=== PATIENT | female | born 1940 ===

== ENCOUNTER 2022-06-05 19:44 | Emergency (ER) | payer OTHER ==
[~2022-06-05] VITALS: Ht 149.9 cm; Wt 54.5 kg
[2022-06-05 20:11] LABS: Basophils # (auto) 0.1 10 ^3/uL (0-0.2); Basophils % (auto) 0.8 % (0.0-2.0); Eosinophils # (auto) 0.1 10 ^3/uL (0-0.8); Eosinophils % (auto) 1.4 % (0.0-7.0); Hemoglobin 13.4 g/dL (12.2-16.2); Lymphocytes # (auto) 2.9 10 ^3/uL (0.4-5.4); Lymphocytes % (auto) 41.8 % (10.0-50.0); Mean Corpuscular Hemoglobin 31.4 pg (28.0-32.0); Mean Corpuscular Hgb Conc. 34.2 g/dL (32.0-36.0); Mean Corpuscular Volume 91.8 fL (80.0-100.0); Monocytes # (auto) 0.6 10 ^3/uL (0-1.3); Neutrophils # (auto) 3.4 10 ^3/uL (1.6-8.6); Nucleated Red Blood Cells % 0.2 %; Red Blood Cells 4.25 10^6/uL (4.0-5.20); Red Cell Distribution Width 13.8 % (11.8-14.3); White Blood Cell 7.1 10^3/uL (4.4-10.8)
[2022-06-05 20:34] LABS: Albumin 3.6 g/dL (3.4-5.0); Calcium 9.4 mg/dL (8.5-10.1)
[2022-06-05 20:36] LABS: BUN/Creatinine Ratio 18.9 (10.0-20.0); Bilirubin, Total 0.3 mg/dL (0.2-1.0); Total Protein 7.2 g/dL (6.4-8.2)
[2022-06-05 21:31] LABS: Urine Bacteria NONE SEEN /hpf (None Seen); Urine Blood 2+ /uL (Negative); Urine WBC 519 /hpf (0 - 5); Urine WBC Clumps PRESENT /hpf (None Seen)
[2022-06-06] MEDS ORDERED: SODIUM CHLORIDE 0.9% 1,000 ML IV ONE ×2 (00:15→02:00)
[2022-06-06] MEDS ORDERED: cefTRIAXone 1GM/50ML D5W 50 ML IV ONE (00:15)
[2022-06-06] MEDS ORDERED: SODIUM CHLORIDE 0.9% 500 ML IV ONE (01:00)
[2022-06-06] MEDS ORDERED: hydrALAZINE HCL 20 MG/ML VL IV PRN (01:00)
[2022-06-06] MEDS ORDERED: MECLIZINE HCL 25 MG TAB PO ONE (02:00)
[2022-06-06] MEDS ORDERED: hydrALAZINE HCL 20 MG/ML VL IV ONE (02:30)
[2022-06-06] MEDS ORDERED: ONDANSETRON HCL 4 MG/2 ML VIAL IV ONE (02:30)
[2022-06-06] MEDS ORDERED: IOHEXOL 300 MG/ML 100ML BOTTLE IJ ONE (02:32)
[2022-06-06] MEDS ORDERED: ASPirin-EC 325mg tab PO ONE (02:45)
[2022-06-06 05:20] VITALS: BP 139/70
[2022-06-06] MEDS ORDERED: LEVO500T31 PO (06:12)
[2022-06-06] MEDS ORDERED: MECL1TAB42 PO (06:12)
== END 2022-06-06 07:18 | disposition home or self-care (01) ==
LOC: ER 19:44
DX: R07.89 Other chest pain (principal); N12 Tubulo-interstitial nephritis, not specified as acute or chronic; I10 Essential (primary) hypertension; Z88.0 Allergy status to penicillin
CPT/HCPCS: 36415; 70450; 70460; 70491; 71045; 80053; 81001; 84484; 85025; 87086; 93005; 96361; 96365; 99285; J0696; J7030; J8597; Q9967; 87088; 87186

== ENCOUNTER 2024-01-20 17:01 | Emergency (ER) | payer OTHER ==
[~2024-01-20] VITALS: Ht 152.4 cm; Wt 56.8 kg
[~2024-01-20 17:01] MED LIST: LEVO500T31 PO; MECL1TAB42 PO
[2024-01-20] MEDS: cloNIDine HCL 0.1 MG TAB PO ONE (18:17)
[2024-01-20] MEDS: ONDANSETRON ODT 4 MG TAB PO ONE (18:17)
[2024-01-20 19:25] LABS: Basophils # (auto) 0 10 ^3/uL (0-0.2); Basophils % (auto) 0.4 % (0.0-2.0); Eosinophils # (auto) 0.1 10 ^3/uL (0-0.8); Eosinophils % (auto) 0.8 % (0.0-7.0); Hematocrit 43.5 % (36.0-46.0); Hemoglobin 14.6 g/dL (12.2-16.2); Lymphocytes # (auto) 1.5 10 ^3/uL (0.4-5.4); Lymphocytes % (auto) 19.7 % (10.0-50.0); Mean Corpuscular Hemoglobin 32.6 pg (28.0-32.0); Mean Corpuscular Hgb Conc. 33.5 g/dL (32.0-36.0); Mean Corpuscular Volume 97.2 fL (80.0-100.0); Monocytes # (auto) 0.6 10 ^3/uL (0-1.3); Monocytes % (auto) 8.5 % (0.0-12.0); Neutrophils # (auto) 5.2 10 ^3/uL (1.6-8.6); Neutrophils % (auto) 70.6 % (37.0-80.0); Platelet Count (auto) 246 10^3/uL (140-450); Red Blood Cells 4.48 10^6/uL (4.0-5.20); Red Cell Distribution Width 13.4 % (11.8-14.3); White Blood Cell 7.4 10^3/uL (4.4-10.8)
[2024-01-20 19:43] LABS: Alanine Aminotransferase 25 U/L (7-40); Albumin 4.7 g/dL (3.2-4.8); Anion Gap 10 (5-15); Aspartate Aminotransferase 22 U/L (13-40); BUN/Creatinine Ratio 19.5 (10.0-20.0); Blood Urea Nitrogen 17 mg/dL (9-23); Carbon Dioxide 27 mmol/L (20-31); Chloride 105 mmol/L (98-107); Potassium 4.4 mmol/L (3.5-5.1); Sodium 142 mmol/L (136-145)
[2024-01-20 19:44] LABS: Bilirubin, Total 0.4 mg/dL (0.2-1.0); Total Protein 7.6 g/dL (5.7-8.2)
[2024-01-20 19:51] LABS: Alkaline Phosphatase 118 U/L (46-116); Calcium 11.1 mg/dL (8.7-10.4); Glucose 111 mg/dL (74-106)
[2024-01-20 19:53] LABS: Urine Bacteria None Seen /hpf (None Seen)
--- NOTE | 2024-01-20 20:03 | ED.PDOC ---
Epistaxis- HPI HPI Comments Patient is a very pleasant 83-year-old female who arrives the ED today via EMS for evaluation of an epistaxis event that occurred approximately 1 hour prior to arrival. Patient states she was in sikh when all of a sudden her right Argueta began to bleed. Patient states it was a fair amount of bleeding. Patient was able to pinch the nose and was brought to the ED for evaluation. At time of evaluation, bleeding was controlled, but blood pressure was 199/100. Patient states she has a history hypertension and takes medications for, but seems to be unsure of the medication she takes. Patient denies any blood thinner use. Patient denies any history of epistaxis events. Patient lives alone. Chief Complaint: Nose Bleed Time Seen by MD: 17:34 Primary Care Provider: UNKNOWN NAME Reviewed Notes: Nurses Notes Allergies: Uncoded Allergies: PENICILLIN (Allergy, Unknown, 06/05/22) Home Meds Active Scripts Meclizine HCl (Meclizine 25) 25 Mg Tab, 25 MG PO TID PRN for 10 Days, #30 TAB Prov:LILLIE CARREON MD 06/06/22 Levofloxacin (Levaquin) 500 Mg Tab, 250 MG PO DAILY for 9 Days, #9 TAB Prov:LILLIE CARREON MD 06/06/22 Information Source: Patient Mode of Arrival: EMS Severity: # Tbsp., Bleeding Controlled Timing: Minutes Duration: Minutes Prehospital treatment: 12 Lead EKG Location: Right naris Mechanism: Spontaneous onset Circumstances: Unknown Use of: None History of: HTN Last Tetanus: UTD Nose: Normal Nose: Intranasal/Septum: Blood Bleeding Status: No active bleeding Bleeding Amount: Moderate Source: Right Past Medical History PAST MEDICAL HISTORY: HTN Surgical History: Denies all surgeries RETAIL OPERATIONS SPECIALIST History: No Pertinent RETAIL OPERATIONS SPECIALIST History Family History Family History: Reviewed,noncontributory to illness, No family hx of Cancer, No family hx of DM, No family hx of Heart kurt, No family hx of HTN, No family hx ofKidney kurt, No family hx of Liver kurt, No family hx of Lung kurt, No family hx of Stroke Social History Smoker: Non-Smoker Alcohol: Denies ETOH Use Drugs: Denies Drug Use Constitutional: denies: chills, diaphoresis, fatigue, fever, malaise, sweats, weakness, others EENTM: reports: nose bleeding; denies: blurred vision, double vision, ear bleeding, ear discharge, ear drainage, ear pain, ear ringing, eye pain, eye redness, hearing loss, mouth pain, mouth swelling, nasal discharge, nose congestion, nose pain, photophobia, tearing, throat pain, throat swelling, voice changes, others Respiratory: denies: cough, hemoptysis, orthopnea, SOB at rest, shortness of breath, SOB with excertion, stridor, wheezing, others Cardiovascular: denies: chest pain, dizzy spells, diaphoresis, Dyspnea on exertion, edema, irregular heart beat, left arm pain, lightheadedness, palpitations, PND, syncope, others Gastrointestinal: denies: abdomen distended, abdominal pain, blood streaked bowels, constipated, diarrhea, dysphagia, difficulty swallowing, hematemesis, melena, nausea, poor appetite, poor fluid intake, rectal bleeding, rectal pain, vomiting, others Genitourinary: denies: abnormal vagina bleeding, burning, dyspareunia, dysuria, flank pain, frequency, hematuria, incontinence, pain, , vagina discharge, urgency, others Neurological: denies: dizziness, fainting, headache, left sided numbness, left sided weakness, numbness, paresthesia, pre-existing deficit, right sided numbness, right sided weakness, seizure, speech problems, tingling, tremors, weakness, others Musculoskeletal: denies: back pain, gout, joint pain, joint swelling, muscle pain, muscle stiffness, neck pain, others Integumetry: denies: bruises, change in color, change in hair/nails, dryness, laceration, lesions, lumps, rash, wounds, others Allergic/Immunocompromised: denies: Difficulty Healing, Frequent Infections, Hives, Itching, others Hematologic/Lymphatic: denies: anemia, blood clots, easy bleeding, easy bruising, swollen glands, others Endocrine: denies: excessive hunger, excessive sweating, excessive thirst, excessive urination, flushing, intolerance to cold, intolerance to heat, unexplained weight gain, unexplained weight loss, others Psychiatric: denies: anxiety, bipolar disorder, depression, hopeless, panic disorder, schizophrenia, sleepless, suicidal, others Physical Exam General Appearance: Mild Distress (Moderate distress due to concerns related to her epistaxis event.), Normal HEENT: Pharynx Normal, TMs Normal, Other (Bleeding from the right near was controlled while in the ED. I was prepared to utilize a rhino rocket if necessary. We will continue to monitor while the patient remains in the ED.) Neck: Full Range of Motion, Non-Tender, Normal, Normal Inspection Respiratory: Chest Non-Tender, Lungs Clear, No Accessory Muscle Use, No Respiratory Distress, Normal Breath Sounds Cardiovascular: No Edema, No JVD, No Murmur, No Gallop, Normal Peripheral Pulses, Tachycardia Breast Exam: Deferred Gastrointestinal: No Organomegaly, Non Tender, No Pulsatile Mass, Normal Bowel Sounds, Soft Genitalia: Deferred Pelvic: Deferred Rectal: Deferred Extremities: No calf tenderness, Normal capillary refill, Normal inspection, Normal range of motion, Non-tender, No pedal edema Neurologic: Alert, 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 Was a procedure done?: No Differential Diagnosis (NSB) Differential Diagnosis: Anterior Nasal Bleed, Posterior Nasal Bleed, Hypertension, Other (Acute coronary syndrome) X-Ray, Labs, Meds, VS Vital Signs Date Time Temp Pulse Resp B/P (MAP) Pulse Ox O2 Delivery O2 Flow Rate FiO2 01/20/24 21:08 89 15 98 Room Air* 0 21 01/20/24 21:08 97.9 89 15 146/86 (106) 98 97.9 01/20/24 20:24 98 17 149/90 (109) 96 01/20/24 18:53 100 01/20/24 18:18 100 18 149/102 (118) 95 01/20/24 18:18 100 18 95 Room Air 01/20/24 18:17 149/102 01/20/24 17:02 98.8 90 16 199/100 (133) 100 Lab Test 01/20/24 20:16 01/20/24 19:52 01/20/24 18:38 Range/Units Troponin I High Sensitivity 9 7 </=34 ng/L Urine Color Straw Yellow Urine Clarity Clear Clear Urine pH 5.5 5.0-9.0 Urine Specific [place] 1.006 1.001-1.035 Urine Protein Negative Negative Urine Ketones Negative Negative Urine Blood Negative Negative /uL Urine Nitrite Negative Negative Urine Bilirubin Negative Negative Urine Urobilinogen Normal Negative mg/dL Urine Leukocyte Esterase Trace Negative /uL Urine RBC <1 0 - 4 /hpf Urine WBC 4 0 - 5 /hpf Urine WBC Clumps Present None Seen /hpf Urine Squamous Epithelial Cells None seen <5 /hpf Urine Bacteria None seen None Seen /hpf Urine Glucose Normal Normal mg/dL White Blood Count 7.4 4.4-10.8 10^3/uL Red Blood Count 4.48 4.0-5.20 10^6/uL Hemoglobin 14.6 12.2-16.2 g/dL Hematocrit 43.5 36.0-46.0 % Mean Corpuscular Volume 97.2 80.0-100.0 fL Mean Corpuscular Hemoglobin 32.6 H 28.0-32.0 pg Mean Corpuscular Hemoglobin Concent 33.5 32.0-36.0 g/dL Red Cell Distribution Width 13.4 11.8-14.3 % Platelet Count 246 140-450 10^3/uL Mean Platelet Volume 8.9 6.9-10.8 fL Neutrophils (%) (Auto) 70.6 37.0-80.0 % Lymphocytes (%) (Auto) 19.7 10.0-50.0 % Monocytes (%) (Auto) 8.5 0.0-12.0 % Eosinophils (%) (Auto) 0.8 0.0-7.0 % Basophils (%) (Auto) 0.4 0.0-2.0 % Neutrophils # (Auto) 5.2 1.6-8.6 10 ^3/uL Lymphocytes # (Auto) 1.5 0.4-5.4 10 ^3/uL Monocytes # (Auto) 0.6 0-1.3 10 ^3/uL Eosinophils # (Auto) 0.1 0-0.8 10 ^3/uL Basophils # (Auto) 0 0-0.2 10 ^3/uL Nucleated Red Blood Cells 0.0 % Sodium Level 142 136-145 mmol/L Potassium Level 4.4 3.5-5.1 mmol/L Chloride Level 105 98-107 mmol/L Carbon Dioxide Level 27 20-31 mmol/L Anion Gap 10 5-15 Blood Urea Nitrogen 17 9-23 mg/dL Creatinine 0.87 0.550-1.02 mg/dL Glomerular Filtration Rate Calc 67 >90 mL/min BUN/Creatinine Ratio 19.5 10.0-20.0 Serum Glucose 111 H 74-106 mg/dL Lactic Acid Level 1.2 0.4-2.0 mmol/L Calcium Level 11.1 H 8.7-10.4 mg/dL Total Bilirubin 0.4 0.2-1.0 mg/dL Aspartate Amino Transferase (AST) 22 13-40 U/L Alanine Aminotransferase (ALT) 25 7-40 U/L Alkaline Phosphatase 118 H 46-116 U/L B-Type Natriuretic Peptide 48.91 0-100 pg/mL Total Protein 7.6 5.7-8.2 g/dL Albumin 4.7 3.2-4.8 g/dL Current Medications Medications (Trade) Dose Ordered Sig/Dee Route Start Time Stop Time Status Last Admin Acetaminophen (Tylenol Tablet) 650 mg ONCE ONCE PO 01/20/24 20:30 01/20/24 20:31 DC 01/20/24 20:21 X-Ray, Labs, Meds, VS Comment All studies performed the ED today were evaluated by me personally. Laboratories were unremarkable for any systemic concern. Urine was pending at time of this note. EKG revealed a sinus tachycardia with a rate of 100. Ventricular premature complexes were appreciated as well as baseline wandering in leads two three AVF and V5. OR interval of 123 and a QT interval of 328. This patient seems to be unaware of the medications that she takes and her blood pressure qualified as a hypertensive urgency. Patient will be admitted for blood pressure concerns as well as acute coronary syndrome and continued evaluation of epistaxis events. As this patient was a [facility] patient, Dr. Frantz partida was called and consulted about the need for admission. Dr. Chakraborty refused the admission for epistaxis even though I explained to her that the patient would be admitted for a hypertensive urgency at the least and a possible acute coronary syndrome. Patient will remain in the ED overnight and receive a cardiac evaluation in our facility in the morning. Time of 1ST Reevaluation: 20:12 Reevaluation 1ST: Improved Consultation: PCP, Cardiology, ENT Patient Education/Counseling: Diagnosis, Treatment Family Education/Counseling: Diagnosis, Treatment Departure 1 Departure Time of Disposition: 20:13 Impression: Primary Impression: Hypertensive urgency Additional Impressions: Acute coronary syndrome Epistaxis Disposition: 30 STILL A PATIENT Condition: Stable Discharged With: Self Critical Care Note Critical Care Time?: No Stability Stability form required: No Heart Score Heart Score: Heart Score Response (Comments) Value History Slightly Suspicious 0 EKG Repolarization Disturb 1 Age >65 2 Risk Factors 1 or 2 risk factors 1 Troponin Normal limit 0 Total 4 RACHEAL FOSS PAC Jan 20, 2024 20:03
[2024-01-20 20:11] LABS: Urine Blood Negative /uL (Negative); Urine Clarity Clear (Clear); Urine Protein, UAD Negative (Negative); Urine Specific Gravity 1.006 (1.001-1.035); Urine Urobilinogen Normal (Negative); Urine WBC 4 /hpf (0 - 5); Urine WBC Clumps PRESENT /hpf (None Seen); Urine pH 5.5 (5.0-9.0)
[2024-01-20 20:16] LABS: Urine Color STRAW (Yellow)
[2024-01-20] MEDS: ACETAMINOPHEN 325 MG TAB PO ONE (20:21)
[2024-01-20 21:08] VITALS: PULSE 89; RESP 15; O2SAT 98
--- NOTE | 2024-01-20 22:22 | DVH ---
EXAM: CT HEAD WITHOUT CONTRAST INDICATION: Severe epistaxis TECHNIQUE: CT of the head without intravenous contrast. Radiation Dose Information: CT Dose: CTDI volume is 50.87 mGy. Dose-length product is 900.9 mGy*cm The dose indicators for CT are the volume Computed Tomography (CT) Dose Index (CTDIvol) and the Dose Length Product (DLP), and are measured in units of mGy and mGy-cm, respectively. These indicators are not patient dose, but values generated from the CT scanner acquisition factors. The report includes radiation exposure data for exposures received during this examination. COMPARISON: CT CT HEAD NECK WITH CONT on DOS: 06/06/22, CT HEAD WITHOUT CONTRAST on DOS: 06/05/22 FINDINGS: There is no evidence of acute intracranial hemorrhage, extra-axial collection, mass effect, midline s hift, herniation or hydrocephalus. A small punctate lacunar infarct nance radiata on the right. The ventricles, sulci and cisterns are age appropriate. The garzon-white differentiation is intact. Patchy periventricular and subcortical white matter hypoattenuation is nonspecific but may be related to small vessel ischemic disease. The visualized paranasal sinuses and mastoid air cells are clear. The surrounding soft tissues and osseous structures are unremarkable. IMPRESSION: No acute intracranial hemorrhage. Small lacunar infarct right nance radiata No findings of territorial ischemia. No soft tissue findings to suggest epistaxis.
[2024-01-21 07:43] VITALS: BP 103/83; PULSE 94; RESP 17; TEMP 98; O2SAT 98
--- NOTE | 2024-01-21 10:52 | ECG ---
[facility] Test Date: 2024-01-20 Test Time: 18:53:24 Pat Name: PIETRO BROWNING Department: ER Room: Gender: F Engineering Consultant: HILLARY : 1940 Requested By: RACHEAL FOSS Order Number: [id number] Reading MD: Casimiro Arredondo Measurements Intervals [place] Rate: 100 P: 52 HI: 123 QRS: 35 QRSD: 68 T: 49 QT: 328 QTc: 423 Interpretive Statements Sinus tachycardia Ventricular premature complex Baseline wander in lead(s) II,III,aVF,V5 Electronically Signed On 01-25-2024 16:08:48 PST by Casimiro Arredondo Please click the below link to view image of tracing.
--- NOTE | 2024-01-21 20:23 | DVHDS2 ---
Physician Discharge Progress N Final Diagnosis: s/p epistaxis uncontrolled blood pressure Operations or Procedures: Operations or Procedures nasal packing Other Interventions Other Interventions lab results, CT of the head, EKG Consultations: Consultations cardiology Commentary: Commentary 83 y.o. female with HTN was brought to the ED after having an episode of epistaxis 1 hour prior to arrival that happened unexpectedly in a orthodoxy. Patient states it was a fair amount of bleeding. By the time she arrived to the ED time bleeding stopped. Her blood pressure was 199/100. Patient takes DP medications but did not know if she took any that day. In the ED she was given BP medication and her BP decreased to normal and remained at that range during the ED stay. CT scan of the head did not show any bleeding. Lab results were unremarkable. Patient was discharged home to f/u with software trainer for better BP control. Condition on Discharge: Stable Disposition: Home SNF Discharge Will this Physician continue t: No Discharge Instructions: Diet: Cardiac 2g Na,low cholest Activity: No Restrictions, As Tolerated Follow Up/Referral: Outpatient cardiology appointment will be scheduled by [facility] case therapist Medications: Continue home medications Follow Up Care: Discharge Statement: "Patient was advised to return to the ER or call 911 if any headaches, dizziness, shortness of breath, chest pain, abdominal pain, bleeding, fevers, or worsening of medical condition. Patient was counseled about treatment plan, medications, possible side effects, patientverbalized understanding. All questions were answered to the best of my ability. This discharge took greater then 30 minutes in planning, reviewing documentation, counseling the patient, and discussing with other team members." JA IRVIN MD Jan 21, 2024 20:23
== END 2024-01-21 07:47 | disposition home or self-care (01) ==
LOC: EDBD 17:01 → ER 17:01
DX: I24.9 Acute ischemic heart disease, unspecified (principal); I16.0 Hypertensive urgency; R04.0 Epistaxis; I10 Essential (primary) hypertension
CPT/HCPCS: 36415; 70450; 80053; 81001; 83605; 83880; 84484; 85025; 93005

== ENCOUNTER 2024-04-07 18:12 | Emergency (ER) | payer OTHER ==
[~2024-04-07] VITALS: Ht 139.7 cm; Wt 47.7 kg
--- NOTE | 2024-04-07 19:03 | DVH ---
EXAMINATION: AP portable chest radiograph CLINICAL HISTORY: Chest pain COMPARISON: None FINDINGS: Somewhat chronic appearing interstitial prominence. Small, patchy opacities in the lung bases. No siz able pleural effusion or pneumothorax. Aortic calcifications. The cardiomediastinal silhouette other rodriguez appears within normal limits given technique. IMPRESSION: Chronic appearing nonspecific interstitial prominence. This may be sequelae of chronic interstitial disease. Atypical infection not excluded. Atelectasis/scarring versus developing infiltrates in the l jocelyn bases.
[2024-04-07] MEDS: MORPHINE SULFATE INJ 2 MG/ml SYRG IV ONE (19:59)
[2024-04-07] MEDS: ONDANSETRON HCL 4 MG/2 ML VIAL IV ONE (19:59)
[2024-04-07 20:00] LABS: Basophils # (auto) 0 10 ^3/uL (0-0.2); Basophils % (auto) 0.1 % (0.0-2.0); Eosinophils # (auto) 0 10 ^3/uL (0-0.8); Eosinophils % (auto) 0.1 % (0.0-7.0); Hematocrit 40.4 % (36.0-46.0); Hemoglobin 13.2 g/dL (12.2-16.2); Mean Corpuscular Hemoglobin 31.5 pg (28.0-32.0); Mean Corpuscular Hgb Conc. 32.7 g/dL (32.0-36.0); Mean Corpuscular Volume 96.4 fL (80.0-100.0); Monocytes # (auto) 0.4 10 ^3/uL (0-1.3); Monocytes % (auto) 4.5 % (0.0-12.0); Neutrophils # (auto) 8.3 10 ^3/uL (1.6-8.6); Neutrophils % (auto) 85.3 % (37.0-80.0); Platelet Count (auto) 189 10^3/uL (140-450); Red Blood Cells 4.19 10^6/uL (4.0-5.20); Red Cell Distribution Width 13.5 % (11.8-14.3); White Blood Cell 9.8 10^3/uL (4.4-10.8)
[2024-04-07 20:01] VITALS: PULSE 61; RESP 18; O2SAT 99
[2024-04-07 20:08] LABS: Urine Bacteria None Seen /hpf (None Seen)
[2024-04-07 20:19] LABS: Urine Amorphous Crystal FEW /hpf (None Seen); Urine Blood Negative /uL (Negative); Urine Clarity Clear (Clear); Urine Color Light-Yellow (Yellow); Urine Protein, UAD Negative (Negative); Urine Specific Gravity 1.016 (1.001-1.035); Urine Squamous Epithelial Cell None Seen /hpf (<5); Urine Urobilinogen Normal (Negative); Urine WBC 1 /HPF (0-5)
[2024-04-07 21:55] LABS: Alanine Aminotransferase 13 U/L (7-40); Albumin 4.3 g/dL (3.2-4.8); Alkaline Phosphatase 97 U/L (46-116); Anion Gap 8 (5-15); Aspartate Aminotransferase 18 U/L (13-40); BUN/Creatinine Ratio 16.9 (10.0-20.0); Blood Urea Nitrogen 13 mg/dL (9-23); Calcium 10.2 mg/dL (8.7-10.4); Carbon Dioxide 24 mmol/L (20-31); Chloride 102 mmol/L (98-107); Potassium 3.8 mmol/L (3.5-5.1)
[2024-04-07 21:56] LABS: Bilirubin, Total 0.7 mg/dL (0.2-1.0); Total Protein 6.8 g/dL (5.7-8.2)
[2024-04-07 21:57] LABS: Glucose 180 mg/dL (74-106); Sodium 134 mmol/L (136-145)
[2024-04-07 22:12] LABS: Rapid Influenza A Negative (Negative); Rapid Influenza B Negative (Negative)
[2024-04-07 22:13] LABS: COVID19 ANTIGEN SOFIA FIA NEGATIVE (NEGATIVE)
[2024-04-07] MEDS ORDERED: ACET500T58 PO (22:51)
[2024-04-07] MEDS ORDERED: ZOFR4T PO (22:51)
[2024-04-07] MEDS ORDERED: AZIT-185 PO (22:51)
--- NOTE | 2024-04-07 22:51 | ED.PDOC ---
History of Present Illness HPI Comments This patient is an 83-year-old female who was brought in by EMS for evaluation of chest pain concerns that began approximately this morning has continued throughout the day. Patient had a right-sided mastectomy informed one week ago, but continues to state that her chest pain is not related to the surgical event. Patient states the pain is substernal and moves towards her surgical site. Patient states nausea vomiting. No fever. Patient was hypertensive at arrival. Per EMS, patient states she does not take her pain medication prescribed by the doctor. Chief Complaint: Abdominal Pain Time Seen by MD: 18:20 Primary Care Provider: UNKNOWN NAME Reviewed Notes: Nurses Notes, Blood Bank Booking Clerk Notes Allergies: Uncoded Allergies: PENICILLIN (Allergy, Unknown, 06/05/22) Home Meds Active Scripts Meclizine HCl (Meclizine 25) 25 Mg Tab, 25 MG PO TID PRN for 10 Days, #30 TAB Prov:LILLIE CARREON MD 06/06/22 Levofloxacin (Levaquin) 500 Mg Tab, 250 MG PO DAILY for 9 Days, #9 TAB Prov:LILLIE CARREON MD 06/06/22 Information Source: Patient, Emergency Med Personnel Mode of Arrival: EMS Severity: Moderate Timing: Hours Duration: Since onset Prehospital treatment: None Past Medical History PAST MEDICAL HISTORY: HTN Surgical History: Denies all surgeries Surgical History (Other): Recent right-sided mastectomy EPITAXIAL REACTOR OPERATOR History: No Pertinent EPITAXIAL REACTOR OPERATOR History Family History Family History: Reviewed,noncontributory to illness, No family hx of Cancer, No family hx of DM, No family hx of Heart kurt, No family hx of HTN, No family hx ofKidney kurt, No family hx of Liver kurt, No family hx of Lung kurt, No family hx of Stroke Social History Smoker: Non-Smoker Alcohol: Denies ETOH Use Drugs: Denies Drug Use Constitutional: denies: chills, diaphoresis, fatigue, fever, malaise, sweats, weakness, others EENTM: denies: blurred vision, double vision, ear bleeding, ear discharge, ear drainage, ear pain, ear ringing, eye pain, eye redness, hearing loss, mouth pain, mouth swelling, nasal discharge, nose bleeding, nose congestion, nose pain, photophobia, tearing, throat pain, throat swelling, voice changes, others Respiratory: denies: cough, hemoptysis, orthopnea, SOB at rest, shortness of breath, SOB with excertion, stridor, wheezing, others Cardiovascular: reports: chest pain; denies: dizzy spells, diaphoresis, Dyspnea on exertion, edema, irregular heart beat, left arm pain, lightheadedness, palpitations, PND, syncope, others Gastrointestinal: reports: nausea, vomiting; denies: abdomen distended, abdominal pain, blood streaked bowels, constipated, diarrhea, dysphagia, difficulty swallowing, hematemesis, melena, poor appetite, poor fluid intake, rectal bleeding, rectal pain, others Genitourinary: denies: abnormal vagina bleeding, burning, dyspareunia, dysuria, flank pain, frequency, hematuria, incontinence, pain, , vagina discharge, urgency, others Neurological: denies: dizziness, fainting, headache, left sided numbness, left sided weakness, numbness, paresthesia, pre-existing deficit, right sided numbness, right sided weakness, seizure, speech problems, tingling, tremors, weakness, others Musculoskeletal: denies: back pain, gout, joint pain, joint swelling, muscle pain, muscle stiffness, neck pain, others Integumetry: denies: bruises, change in color, change in hair/nails, dryness, laceration, lesions, lumps, rash, wounds, others Allergic/Immunocompromised: denies: Difficulty Healing, Frequent Infections, Hives, Itching, others Hematologic/Lymphatic: denies: anemia, blood clots, easy bleeding, easy bruising, swollen glands, others Endocrine: denies: excessive hunger, excessive sweating, excessive thirst, excessive urination, flushing, intolerance to cold, intolerance to heat, unexplained weight gain, unexplained weight loss, others Psychiatric: denies: anxiety, bipolar disorder, depression, hopeless, panic disorder, schizophrenia, sleepless, suicidal, others Physical Exam General Appearance: Moderate Distress (Moderate distress due to chest pain and nausea and vomiting concerns.), Normal HEENT: Normal ENT Inspection, Pharynx Normal, TMs Normal Neck: Full Range of Motion, Non-Tender, Normal, Normal Inspection Respiratory: Chest Non-Tender, Lungs Clear, No Accessory Muscle Use, No Respiratory Distress, Normal Breath Sounds, Other (Unable to elicit any additional pain on palpation within the substernal region. No signs of trauma, but the patient does display a recent right-sided mastectomy surgical scar. No signs of infection.) Cardiovascular: No Edema, No JVD, No Murmur, No Gallop, Normal Peripheral Pulses, Regular Rate/Rhythm Breast Exam: Deferred Gastrointestinal: No Organomegaly, Non Tender, No Pulsatile Mass, Normal Bowel Sounds, Soft Genitalia: Deferred Pelvic: Deferred Rectal: Deferred Extremities: NOT DONE Neurologic: Alert, No Motor Deficits, Normal Affect, No Sensory Deficits Cerebellar Function: NOT DONE Reflexes: NOT DONE Skin: Dry, Normal Color, Warm Lymphatic: No Adenopathy Was a procedure done? Was a procedure done?: No Differential Dx Considerations may include: Acute coronary syndrome, pneumonia, viral upper respiratory illness, postoperative pain X-Ray, Labs, Meds, VS Vital Signs Date Time Temp Pulse Resp B/P (MAP) Pulse Ox O2 Delivery O2 Flow Rate FiO2 04/07/24 21:00 63 16 147/72 04/07/24 20:06 60 04/07/24 20:01 97.5 18 61 167/79 (108) 98 97.5 04/07/24 20:01 61 18 99 Room Air* 0 N/A Nasal Cannula* 04/07/24 19:59 61 18 167/79 04/07/24 18:40 98.3 60 16 169/79 (109) 99 Lab Test 04/07/24 21:06 04/07/24 20:30 04/07/24 19:55 04/07/24 19:20 Range/Units Influenza Type A Antigen Negative Negative Influenza Type B Antigen Negative Negative SARS-CoV-2 Antigen (Rapid) Negative NEGATIVE Sodium Level 134 L 136-145 mmol/L Potassium Level 3.8 3.5-5.1 mmol/L Chloride Level 102 98-107 mmol/L Carbon Dioxide Level 24 20-31 mmol/L Anion Gap 8 5-15 Blood Urea Nitrogen 13 9-23 mg/dL Creatinine 0.77 0.550-1.02 mg/dL Glomerular Filtration Rate Calc 77 >90 mL/min BUN/Creatinine Ratio 16.9 10.0-20.0 Serum Glucose 180 H 74-106 mg/dL Calcium Level 10.2 8.7-10.4 mg/dL Total Bilirubin 0.7 0.2-1.0 mg/dL Aspartate Amino Transferase (AST) 18 13-40 U/L Alanine Aminotransferase (ALT) 13 7-40 U/L Alkaline Phosphatase 97 46-116 U/L Troponin I High Sensitivity < 3 L < 3 L </=34 ng/L Total Protein 6.8 5.7-8.2 g/dL Albumin 4.3 3.2-4.8 g/dL Urine Color Light-yellow Yellow Urine Clarity Clear Clear Urine pH 7.0 5.0-9.0 Urine Specific [place] 1.016 1.001-1.035 Urine Protein Negative Negative Urine Ketones 2+ H Negative Urine Blood Negative Negative /uL Urine Nitrite Negative Negative Urine Bilirubin Negative Negative Urine Urobilinogen Normal Negative mg/dL Urine Leukocyte Esterase Negative Negative /uL Urine RBC 2 0 - 4 /hpf Urine Microscopic WBC 1 0-5 /HPF Urine Squamous Epithelial Cells None seen <5 /hpf Urine Amorphous Crystals Few None Seen /hpf Urine Bacteria None seen None Seen /hpf Urine Glucose Trace Normal mg/dL White Blood Count 9.8 4.4-10.8 10^3/uL Red Blood Count 4.19 4.0-5.20 10^6/uL Hemoglobin 13.2 12.2-16.2 g/dL Hematocrit 40.4 36.0-46.0 % Mean Corpuscular Volume 96.4 80.0-100.0 fL Mean Corpuscular Hemoglobin 31.5 28.0-32.0 pg Mean Corpuscular Hemoglobin Concent 32.7 32.0-36.0 g/dL Red Cell Distribution Width 13.5 11.8-14.3 % Platelet Count 189 140-450 10^3/uL Mean Platelet Volume 9.0 6.9-10.8 fL Neutrophils (%) (Auto) 85.3 H 37.0-80.0 % Lymphocytes (%) (Auto) 10.0 10.0-50.0 % Monocytes (%) (Auto) 4.5 0.0-12.0 % Eosinophils (%) (Auto) 0.1 0.0-7.0 % Basophils (%) (Auto) 0.1 0.0-2.0 % Neutrophils # (Auto) 8.3 1.6-8.6 10 ^3/uL Lymphocytes # (Auto) 1.0 0.4-5.4 10 ^3/uL Monocytes # (Auto) 0.4 0-1.3 10 ^3/uL Eosinophils # (Auto) 0 0-0.8 10 ^3/uL Basophils # (Auto) 0 0-0.2 10 ^3/uL Nucleated Red Blood Cells 0.0 % Lactic Acid Level 1.9 0.4-2.0 mmol/L Current Medications Medications (Trade) Dose Ordered Sig/Dee Route Start Time Stop Time Status Last Admin Morphine Sulfate 2 mg ONCE ONCE IV 04/07/24 18:30 04/07/24 18:31 DC 04/07/24 19:59 Ondansetron HCl (Zofran) 4 mg ONCE ONCE IV 04/07/24 18:30 04/07/24 18:31 DC 04/07/24 19:59 X-Ray, Labs, Meds, VS Comment All studies performed the ED were evaluated by me personally. Serum laboratories were relatively unremarkable for any systemic concerns. Swabs were negative for any COVID or influenza. EKG reveals sinus rhythm with a rate of 60, [place] interval 122 and QT interval of 435. Normal EKG. Chest x-ray revealed what is probably a chronic appearing nonspecific interstitial prominence atypical infection can not be excluded. Patient will be discharged with antibiotics to address a pneumonia concerns, I do believe the patient is suffering pain related to her recent mastectomy event. Advised patient follow up with the primary care provider for continued evaluation and pain care management. Time of 1ST Reevaluation: 22:49 Reevaluation 1ST: Improved Consultation: PCP Patient Education/Counseling: Diagnosis, Treatment Family Education/Counseling: Diagnosis, Treatment Departure 1 Departure Time of Disposition: 22:49 Impression: Primary Impression: Pneumonia Additional Impression: Postoperative pain Disposition: 01 HOME / SELF CARE / HOMELESS Condition: Stable Additional Instructions: Advised patient utilize antibiotics as directed until completion and additionally, pain medication as needed. Patient should follow up with primary care provider and surgeon for continued evaluation and management of her mastectomy postoperative care. e-Prescriptions Acetaminophen (Acetaminophen) 500 Mg Tab 500 MG PO Q4HP PRN, #30 TAB Prov: RACHEAL FOSS PAC 04/07/24 Ondansetron Odt 4MG Tab (ZOFRAN PO) 4 Mg Tb 4 MG PO Q6HP PRN, #20 TAB ODT TAB-DISSOLVE IN MOUTH, THEN SWALLOW Prov: RACHEAL FOSS PAC 04/07/24 Azithromycin (ZITHROMAX TABLET) 250 Mg Tb 250 MG PO DAILY for 4 Days, #4 TAB Prov: RACHEAL FOSS PAC 04/07/24 Discharged With: Self, Friend Critical Care Note Critical Care Time?: No Stability Stability form required: No Heart Score Heart Score: Heart Score Response (Comments) Value History Slightly Suspicious 0 EKG Normal 0 Age >65 2 Risk Factors 1 or 2 risk factors 1 Troponin Normal limit 0 Total 3 RACHEAL FOSS PAC Apr 07, 2024 22:51
[2024-04-07 23:00] VITALS: BP 155/78; PULSE 66; RESP 18; TEMP 97.3; O2SAT 98
[2024-04-07] MEDS: AZITHROMYCIN 250 MG TAB PO ONE (23:10)
--- NOTE | 2024-04-08 06:33 | ECG ---
[facility] Test Date: 2024-04-07 Test Time: 20:06:11 Pat Name: PIETRO BROWNING Department: ER Room: Gender: F Relocation Commissioner: : [id number] Requested By: RACHEAL FOSS Order Number: [id number] Reading MD: Casimiro Arredondo Measurements Intervals [place] Rate: 60 P: 70 ND: 122 QRS: 35 QRSD: 92 T: 49 QT: 435 QTc: 435 Interpretive Statements Sinus rhythm Electronically Signed On 04-09-2024 8:25:44 PST by Casimiro Arredondo Please click the below link to view image of tracing.
== END 2024-04-07 23:28 | disposition home or self-care (01) ==
LOC: EDBD 18:12 → EDUNIT# 18:12 → ER 18:12
DX: J18.9 Pneumonia, unspecified organism (principal); G89.18 Other acute postprocedural pain; I10 Essential (primary) hypertension; R11.2 Nausea with vomiting, unspecified; Z88.0 Allergy status to penicillin; Z90.11 Acquired absence of right breast and nipple; Z20.822 Contact with and (suspected) exposure to COVID-19
CPT/HCPCS: 36415; 71045; 80053; 81001; 83605; 84484; 85025; 87426; 87804; 93005; 96374; 96375; 99285; J2270; J2405